=== PATIENT | female | born 1955 | race African-American/Black ===

== ENCOUNTER → 2016-08-18 | Outpatient (CLI) | payer BC, OTHER | LOC: RAD 13:44 | DX: Z12.31 Encounter for screening mammogram for malignant neoplasm of breast (principal) ==

== ENCOUNTER 2017-08-10 06:31 | Inpatient (IN) | payer BC, OTHER ==
[~2017-08-10] VITALS: Ht 157.5 cm; Wt 90.7 kg
--- NOTE | ~2017-08-10 | HC ---
[facility] [place] [address] CONSULTATION Name: SAYRA ALBERTS [facility] Room #: 431-P ADM IN M.R.#: [id number] Admission: 08/10/17 Attend Phys: Mikael Rasmussen MD Discharge: Date of : 57 Report #: [id number] THIS REPORT FOR: //name// CC: Mikael FORDE unknown DATE OF SERVICE: 08/18/2017 REASON FOR CONSULTATION: I was asked to evaluate concerning complicated diverticulitis with perforation. HISTORY OF PRESENT ILLNESS: The patient is a 61-year-old who presented to the Emergency Room on 07/31/2017 after 4 days of left lower abdominal pain associated with fever, malaise, anorexia. She had associated chills, temperature up to 103 degrees. On presentation, she underwent a CT scan of the abdomen and pelvis, which showed evidence of descending colon diverticulitis with evidence of perforation and retroperitoneal air. No definite abscess cavity yet formed. She had several CAT scans subsequently with stability of the left abdominal process and retroperitoneal disease. Treated with Zosyn. She has defervesced. White count now is normal. Overall, feels better. She is able to eat and is passing stool. Followup CAT scan is scheduled for this morning. ALLERGIES: SULFA. MEDICATIONS: As noted on her MAR including Zosyn. PAST MEDICAL HISTORY: Hiatal hernia, foot infection, laparoscopy, colonoscopy with diverticular changes about 13 years ago. FAMILY HISTORY: Noncontributory. SOCIAL HISTORY: Lives alone, works as a select banker, nonsmoker, no significant alcohol intake. REVIEW OF SYSTEMS: Denies any skin or lymphatic issues. No cardiopulmonary issues. No complaints. PHYSICAL EXAMINATION: GENERAL: She is afebrile, hemodynamically stable, alert and cooperative and pleasant, in no acute distress. Moderately obese. SKIN: Unremarkable. LYMPH: Unremarkable. HEENT: Unremarkable. NECK: Supple. LUNGS: Clear. [facility] [address] [place] [address] CONSULTATION Name: SAYRA ALBERTS [facility] Room #: 431-[facility]#: [id number] Admission: 08/10/17 Attend Phys: Mikael Rasmussen MD Discharge: Date of : 57 Report #: [id number] HEART: Regular without murmur. ABDOMEN: Soft, nontender. Fullness in the left lower quadrant. No rebound or guarding. EXTREMITIES: Unremarkable. NEUROLOGIC: Nonfocal. RECTAL: Examination not performed. LABORATORY STUDIES: Sodium 141, potassium 3.4, bicarb of 26, creatinine 1.1. Liver function test normal. Albumin at 2.1. Hemoglobin 10.6, WBC 5.1, platelet count is 353,000. Differential unremarkable. Urinalysis with 1+ protein, 1+ ketones, 3+ blood on admission. Blood cultures negative to date. CT scan of the abdomen on 08/14/2017 showed evidence of descending colon wall thickening with diverticulitis and focal perforation. There was adjacent intraperitoneal stranding and gas with extraperitoneal collection without air fluid level. IMPRESSION: Acute diverticulitis descending colon with localized perforation that extends in the retroperitoneum and extraperitoneal tissues. Her toxicity has improved, although still has extensive amount of disease in the pelvis and retroperitoneum. The patient voiced reluctance to continue IV antibiotic therapy. She has 8 days into her treatment course and seemed to be responding to her current treatment program. RECOMMENDATION: I would favor continuing IV antibiotic therapy until this area has walled off and stabilized. Still extensive amount of contamination into the retroperitoneum and extraperitoneal tissues. The patient is to have CAT scan this morning and we will give further direction following the study. Anticipate continuing her IV antibiotic therapy through next week and reevaluate. The patient again was reluctant to proceed with this. We will await CT scan for further counseling of the patient and decide on her course of treatment. <ELECTRONICALLY SIGNED> By: Krishna Garcia MD 08/18/17 [id number] Krishna Garcia MD /nt
[2017-08-10 06:49] VITALS: BP 140/95
[2017-08-10 06:59] LABS: URINE BILIRUBIN NEGATIVE (Negative); URINE BLOOD 3+ (Negative); URINE CLARITY CLEAR; URINE COLOR YELLOW; URINE GLUCOSE-RANDOM* NEGATIVE (Negative); URINE KETONES 1+ (Negative); URINE LEUKOCYTES-REFLEX NEGATIVE (Negative); URINE NITRITE-REFLEX NEGATIVE (Negative); URINE PROTEIN (DIPSTICK) 1+ (Negative); URINE UROBILINOGEN 0.2 E.U./dl (0.2-1.0)
[2017-08-10 07:11] LABS: HEMATOCRIT 38.5 % (37.0-47.0); MCH 29.8 pg (26.0-34.0); MCHC 33.8 g/dL (28.0-37.0); MCV 88.2 fL (80.0-100.0); PLATELET COUNT 181 thou/uL (150-400); RBC 4.37 mil/uL (4.20-5.00); RDW 13.3 % (10.5-14.5); WBC 13.5 thou/uL (4.0-11.0)
[2017-08-10] MEDS ORDERED: MULTIVITAMINS1 EAC7 PO (07:16)
[2017-08-10 07:29] LABS: CALCIUM 8.8 mg/dL (8.5-10.1); CREATININE 1.3 mg/dL (0.6-1.0); POTASSIUM 3.7 mmol/L (3.5-5.1)
[2017-08-10 07:33] LABS: ALBUMIN 3.2 g/dL (3.4-5.0); TOTAL BILIRUBIN 1.4 mg/dL (<0.1-1.0); TOTAL PROTEIN 7.8 g/dL (6.4-8.2)
[2017-08-10 07:57] LABS: CASTS None Seen /LPF (None Seen); CRYSTALS None Seen /LPF (None Seen); SQUAMOUS >10 Many /LPF (0-3); URINE WBC-REFLEX 0-5 Rare /HPF (0-5)
[2017-08-10 07:58] LABS: BACTERIA-REFLEX 1-9 Few /HPF (None Seen); URINE RBC 0-2 Rare /HPF (0-2)
[2017-08-10 08:59] LABS: ABSOLUTE NEUTROPHILS 10.7 thou/uL (1.4-8.2)
[2017-08-10 09:55] VITALS: BP 124/81
[2017-08-10 10:26] VITALS: BP 124/81
[2017-08-10 11:16] VITALS: BP 143/87
[2017-08-10 12:20] LABS: HEMATOCRIT 38.4 % (37.0-47.0); HEMOGLOBIN 12.5 gm/dL (12.0-15.0)
[2017-08-10 21:00] VITALS: BP 143/80
[2017-08-11 00:20] LABS: HEMATOCRIT 35.9 % (37.0-47.0); HEMOGLOBIN 11.9 gm/dL (12.0-15.0)
[2017-08-11 00:32] VITALS: BP 100/59
[2017-08-11 04:30] VITALS: BP 102/669
[2017-08-11 06:13] LABS: HEMATOCRIT 34.3 % (37.0-47.0); HEMOGLOBIN 11.4 gm/dL (12.0-15.0); MCH 29.6 pg (26.0-34.0); MCHC 33.2 g/dL (28.0-37.0); MCV 89.2 fL (80.0-100.0); RBC 3.85 mil/uL (4.20-5.00); WBC 16.8 thou/uL (4.0-11.0)
[2017-08-11 06:21] LABS: CALCIUM 8.2 mg/dL (8.5-10.1); CREATININE 1.6 mg/dL (0.6-1.0); POTASSIUM 4.5 mmol/L (3.5-5.1)
[2017-08-11 09:19] VITALS: BP 115/61
[2017-08-11 11:33] LABS: INR 1.1; PROTIME 11.6 Seconds (9.3-11.4)
[2017-08-11 11:56] LABS: HEMATOCRIT 35.7 % (37.0-47.0); HEMOGLOBIN 11.7 gm/dL (12.0-15.0)
[2017-08-11 20:00] VITALS: BP 132/72
[2017-08-12 04:00] VITALS: BP 130/80
[2017-08-12 05:39] LABS: BASOPHILS 0.2 % (0.0-2.0); EOSINOPHILS 0.1 % (0.0-3.0); HEMATOCRIT 37.6 % (37.0-47.0); HEMOGLOBIN 12.2 gm/dL (12.0-15.0); LYMPHOCYTES 7.5 % (24.0-44.0); MCH 29.2 pg (26.0-34.0); MCHC 32.4 g/dL (28.0-37.0); MONOCYTES 7.1 % (1.0-8.0); PLATELET COUNT 211 thou/uL (150-400); POLYS 85.1 % (36.0-66.0); RBC 4.18 mil/uL (4.20-5.00); RDW 14.3 % (10.5-14.5); WBC 15.2 thou/uL (4.0-11.0)
[2017-08-12 05:46] LABS: CALCIUM 8.9 mg/dL (8.5-10.1); CREATININE 1.4 mg/dL (0.6-1.0); POTASSIUM 3.7 mmol/L (3.5-5.1)
[2017-08-12 07:50] VITALS: BP 130/80
[2017-08-12 16:50] VITALS: BP 147/82
[2017-08-12 20:00] VITALS: BP 120/63
[2017-08-13 04:29] VITALS: BP 141/85
[2017-08-13 04:49] LABS: HEMATOCRIT 32.1 % (37.0-47.0); HEMOGLOBIN 10.7 gm/dL (12.0-15.0); MCH 29.4 pg (26.0-34.0); MCHC 33.3 g/dL (28.0-37.0); MCV 88.3 fL (80.0-100.0); RBC 3.64 mil/uL (4.20-5.00); RDW 13.7 % (10.5-14.5); WBC 11.7 thou/uL (4.0-11.0)
[2017-08-13 05:03] LABS: CALCIUM 8.2 mg/dL (8.5-10.1); CREATININE 1.2 mg/dL (0.6-1.0); POTASSIUM 3.5 mmol/L (3.5-5.1)
[2017-08-13 08:10] VITALS: BP 137/73
[2017-08-13 16:00] VITALS: BP 132/73
[2017-08-13 20:30] VITALS: BP 142/72
[2017-08-14 04:30] VITALS: BP 121/68
[2017-08-14 06:18] LABS: HEMATOCRIT 33.9 % (37.0-47.0); HEMOGLOBIN 11.2 gm/dL (12.0-15.0); MCH 29.6 pg (26.0-34.0); MCHC 33.1 g/dL (28.0-37.0); MCV 89.4 fL (80.0-100.0); RBC 3.8 mil/uL (4.20-5.00); WBC 8.9 thou/uL (4.0-11.0)
[2017-08-14 06:27] LABS: CALCIUM 8.1 mg/dL (8.5-10.1); POTASSIUM 3.9 mmol/L (3.5-5.1)
[2017-08-14 08:00] VITALS: BP 149/75
[2017-08-14 16:00] VITALS: BP 148/65
[2017-08-14 19:52] VITALS: BP 143/76; BP 146/73
[2017-08-15 04:48] VITALS: BP 158/70
[2017-08-15 06:34] LABS: HEMOGLOBIN 12.1 gm/dL (12.0-15.0); MCH 29.7 pg (26.0-34.0); MCHC 33.5 g/dL (28.0-37.0); MCV 88.6 fL (80.0-100.0); PLATELET COUNT 293 thou/uL (150-400); RBC 4.07 mil/uL (4.20-5.00); RDW 13.8 % (10.5-14.5); WBC 6.3 thou/uL (4.0-11.0)
[2017-08-15 06:49] LABS: CALCIUM 8.8 mg/dL (8.5-10.1); CREATININE 1.1 mg/dL (0.6-1.0); POTASSIUM 3.3 mmol/L (3.5-5.1)
[2017-08-15 07:52] VITALS: BP 164/81
[2017-08-15 09:53] LABS: ABSOLUTE NEUTROPHILS 3.8 thou/uL (1.4-8.2); ATYPICAL LYMPHS 2 %; METAMYELOCYTES 1 %
[2017-08-15 20:05] VITALS: BP 140/68
[2017-08-16 04:40] VITALS: BP 180/91
[2017-08-16 06:04] LABS: HEMATOCRIT 33.8 % (37.0-47.0); HEMOGLOBIN 11.2 gm/dL (12.0-15.0); MCHC 33.2 g/dL (28.0-37.0); MCV 87.4 fL (80.0-100.0); PLATELET COUNT 335 thou/uL (150-400); RBC 3.87 mil/uL (4.20-5.00); RDW 13.6 % (10.5-14.5); WBC 4.7 thou/uL (4.0-11.0)
[2017-08-16 06:19] LABS: CALCIUM 8.4 mg/dL (8.5-10.1); POTASSIUM 3.4 mmol/L (3.5-5.1)
[2017-08-16 06:23] VITALS: BP 164/78
[2017-08-16 07:25] VITALS: BP 160/82
[2017-08-16 07:33] LABS: ABSOLUTE NEUTROPHILS 2.2 thou/uL (1.4-8.2); ATYPICAL LYMPHS 3 %; LARGE PLATELETS OCCASIONAL
[2017-08-16 19:41] VITALS: BP 151/74
[2017-08-16 23:10] VITALS: BP 136/76
[2017-08-17 04:28] VITALS: BP 141/67
[2017-08-17 05:51] LABS: HEMATOCRIT 31.8 % (37.0-47.0); HEMOGLOBIN 10.6 gm/dL (12.0-15.0); MCH 29.5 pg (26.0-34.0); MCHC 33.4 g/dL (28.0-37.0); MCV 88.4 fL (80.0-100.0); PLATELET COUNT 353 thou/uL (150-400); RDW 13.6 % (10.5-14.5); WBC 5.1 thou/uL (4.0-11.0)
[2017-08-17 06:06] LABS: CALCIUM 8.4 mg/dL (8.5-10.1); CREATININE 1.1 mg/dL (0.6-1.0); POTASSIUM 3.4 mmol/L (3.5-5.1)
[2017-08-17 06:10] LABS: ALBUMIN 2.1 g/dL (3.4-5.0); DIRECT BILIRUBIN 0.1 mg/dL (<0.1-0.3); TOTAL BILIRUBIN 0.3 mg/dL (<0.1-1.0); TOTAL PROTEIN 6.1 g/dL (6.4-8.2)
[2017-08-17 07:16] VITALS: BP 161/75
[2017-08-17 08:07] LABS: ABSOLUTE NEUTROPHILS 2.7 thou/uL (1.4-8.2); MYELOCYTES 1 %
[2017-08-17 08:08] LABS: ANISOCYTOSIS SLIGHT
[2017-08-17 10:00] VITALS: BP 161/75
[2017-08-17 19:41] VITALS: BP 154/75
[2017-08-18] VITALS (7 sets, daily range): BP systolic 167–186; BP diastolic 73–90
[2017-08-18] MEDS ORDERED: ZOSYN 3/0.373.375 G3 IVPB (17:31)
== END 2017-08-18 19:08 | disposition home health service (06) | DRG 392 ==
LOC: ER 06:31 → 4E 09:08 → EROBS 09:08 → 4E 10:35
PROVIDERS: Emergency Medicine; Family Medicine; Hospitalist; Internal Medicine Gastroenterology; Surgery
DX: K57.20 Diverticulitis of large intestine with perforation and abscess without bleeding (principal); N17.9 Acute kidney failure, unspecified; L02.211 Cutaneous abscess of abdominal wall; D72.829 Elevated white blood cell count, unspecified; K44.9 Diaphragmatic hernia without obstruction or gangrene; Z88.2 Allergy status to sulfonamides; Z88.8 Allergy status to other drugs, medicaments and biological substances; Z79.899 Other long term (current) drug therapy
CPT/HCPCS: 10084; 10183; 27000

== ENCOUNTER → 2017-08-28 | Outpatient (CLI) | payer BC, OTHER ==
[~2017-08-28] MED LIST: MULTIVITAMINS1 EAC7 PO; ZOSYN 3/0.373.375 G3 IVPB
== END ==
LOC: RAD 08:07 → CAT 08:07
DX: Z12.31 Encounter for screening mammogram for malignant neoplasm of breast (principal); K57.90 Diverticulosis of intestine, part unspecified, without perforation or abscess without bleeding; J90 Pleural effusion, not elsewhere classified

== ENCOUNTER → 2017-10-05 | Outpatient (CLI) | payer BC, OTHER | LOC: CAT 08:45 | DX: K57.92 Diverticulitis of intestine, part unspecified, without perforation or abscess without bleeding (principal) ==

== ENCOUNTER → 2017-10-19 | Outpatient (CLI) | payer BC, OTHER ==
[~2017-10-19] VITALS: Ht 157.5 cm; Wt 85.7 kg
[2017-10-19] VITALS (8 sets, daily range): BP systolic 124–155; BP diastolic 68–95
[~2017-10-19] MED LIST changes: +PREMARIN0.3 MG PO; +PROBIOTIC1 EAC1 PO; +VITAMIN D2000 UNIT PO
== END | disposition home or self-care (01) ==
LOC: CAT 08:50
DX: T81.4XXA Infection following a procedure, initial encounter (principal); L02.211 Cutaneous abscess of abdominal wall; Z87.19 Personal history of other diseases of the digestive system; Z90.710 Acquired absence of both cervix and uterus; Z98.890 Other specified postprocedural states; Z87.891 Personal history of nicotine dependence; Z88.2 Allergy status to sulfonamides; Z88.8 Allergy status to other drugs, medicaments and biological substances; Z79.899 Other long term (current) drug therapy

== ENCOUNTER → 2018-10-29 | Outpatient (CLI) | payer BC, OTHER ==
[~2018-10-29] MED LIST changes: +CIPROFLOXACIN500 M1 PO; +FIRVANQ50 MG/1 ML PO; +FLAGYL500 MG PO; +LASIX 20 MG TAB20 MG PO
== END ==
LOC: BC 11:34
DX: Z12.31 Encounter for screening mammogram for malignant neoplasm of breast (principal)

== ENCOUNTER → 2019-10-31 | Outpatient (CLI) | payer BC, OTHER | LOC: RAD 08:35 | PROVIDERS: ATTEND Family Medicine | DX: Z12.31 Encounter for screening mammogram for malignant neoplasm of breast (principal) ==

== ENCOUNTER → 2020-12-28 | Outpatient (CLI) | payer BC, OTHER | LOC: RAD 13:43 | PROVIDERS: ATTEND Family Medicine | DX: Z12.31 Encounter for screening mammogram for malignant neoplasm of breast (principal) ==